=== PATIENT | male | born 1930 | race Caucasian/White ===

== ENCOUNTER 2018-02-22 19:44 | Observation (INO) | payer MEDICARE ==
[~2018-02-22] VITALS: Ht 177.8 cm; Wt 89.4 kg
[~2018-02-22 19:44] MED LIST: ACYC800 PO; ALBU90OI61 INH; ATEN50; Aspirin EC81 MG PO; BUDE6HFA; Baclofen10 MG PO; CEPH500 PO; CLIN300 PO; CLOB.05TC TOP; Coumadin PO; DIGO.25; DOCU100 PO; FURO20; FURO40 PO; HYDACE5325 PO; LISI20; Lisinopril2.5 MG PO; METF500 PO; MUPI2TO TOP; NEBI5 PO; Nitrostat0.4 MG SL; OXCA150 PO; OXYACE5T PO; POTCHL10ER PO; SENN187 PO; SERT100 PO; SIMV10 PO; TIOT18 INH; TORSE20 PO; VENLAFAXINE HC150 MG PO; WARF10; WARF7.5; WARF7.5 PO
[2018-02-22 20:28] LABS: BASOPHILS ABSOLUTE AUTO 0.04 K/mm3 (0.00-0.23); BASOPHILS PERCENT AUTO 1 % (0-2); EOSINOPHILS ABSOLUTE AUTO 0.63 K/mm3 (0.00-0.68); EOSINOPHILS PERCENT AUTO 9 % (0-6); Hematocrit 42.4 % (37.0-53.0); Hemoglobin 13.7 g/dL (13.5-17.5); IMMATURE GRAN ABSOLUTE AUTO 0.03 K/mm3 (0.00-0.10); IMMATURE GRAN PERCENT AUTO 0 % (0-1); LYMPHOCYTES ABSOLUTE AUTO 1.74 K/mm3 (0.84-5.20); LYMPHOCYTES PERCENT AUTO 24 % (21-46); MONOCYTES PERCENT AUTO 11 % (4-13); Mean Corpuscular HGB 31.6 pg (26.0-34.0); Mean Corpuscular HGB Conc 32.3 g/dL (31.5-36.5); Mean Corpuscular Volume 98 fL (80-100); Mean Platelet Volume 10.4 fL (9.1-12.4); NEUTROPHILS ABSOLUTE AUTO 4.12 K/mm3 (1.96-9.15); NEUTROPHILS PERCENT AUTO 56 % (41-73); Platelet Count 203 K/mm3 (150-400); RDW Coefficient Variation 13.2 % (11.7-14.2); RDW Standard Deviation 47.4 fL (35.1-46.3); Red Blood Cell Count 4.34 M/mm3 (4.30-5.90); White Blood Cell Count 7.36 K/mm3 (4.00-11.30)
[2018-02-22 20:44] LABS: Alanine Aminotransfer (ALT/SGP 32 U/L (12-78); Albumin, Blood 3.5 g/dL (3.4-5.0); Alk Phos 80 U/L (50-136); Anion Gap 7 mmol/L (6-16); Aspartate Aminotrans (AST/SGOT 29 U/L (12-37); Bilirubin, Total 0.3 mg/dL (0.1-1.0); Blood Urea Nitrogen 24 mg/dL (8-24); Bun/Creatinine Ratio 19.4 (12.0-20.0); CO2, Blood 24 mmol/L (21-32); Calcium, Blood 8.5 mg/dL (8.5-10.1); Chloride, Blood 109 mmol/L (98-108); Creatinine, Blood 1.24 mg/dL (0.60-1.20); Globulin, Blood 3.5 g/dL (2.2-4.0); Glomerular Filtration Rate 59 (60-); Glucose, Blood 118 mg/dL (70-99); Potassium, Blood 5.1 mmol/L (3.5-5.5); Sodium, Blood 140 mmol/L (136-145); Troponin I <0.015 ng/mL (0.000-0.040)
[2018-02-22 21:57] LABS: International Normalized Ratio 2.85; Prothrombin Time Results 30.6 Sec (9.7-11.5)
[2018-02-23] MEDS ORDERED: OXYC5 PO (01:05)
[2018-02-23 04:31] LABS: BASOPHILS ABSOLUTE AUTO 0.04 K/mm3 (0.00-0.23); BASOPHILS PERCENT AUTO 0 % (0-2); EOSINOPHILS ABSOLUTE AUTO 0.23 K/mm3 (0.00-0.68); EOSINOPHILS PERCENT AUTO 2 % (0-6); Hematocrit 42.3 % (37.0-53.0); Hemoglobin 13.6 g/dL (13.5-17.5); IMMATURE GRAN ABSOLUTE AUTO 0.05 K/mm3 (0.00-0.10); IMMATURE GRAN PERCENT AUTO 1 % (0-1); LYMPHOCYTES ABSOLUTE AUTO 0.81 K/mm3 (0.84-5.20); LYMPHOCYTES PERCENT AUTO 8 % (21-46); MONOCYTES ABSOLUTE AUTO 0.23 K/mm3 (0.16-1.47); MONOCYTES PERCENT AUTO 2 % (4-13); Mean Corpuscular HGB Conc 32.2 g/dL (31.5-36.5); Mean Corpuscular Volume 96 fL (80-100); NEUTROPHILS ABSOLUTE AUTO 8.43 K/mm3 (1.96-9.15); NEUTROPHILS PERCENT AUTO 86 % (41-73); Platelet Count 196 K/mm3 (150-400); RDW Coefficient Variation 13.2 % (11.7-14.2); RDW Standard Deviation 47.1 fL (35.1-46.3); Red Blood Cell Count 4.39 M/mm3 (4.30-5.90); White Blood Cell Count 9.79 K/mm3 (4.00-11.30)
[2018-02-23 04:54] LABS: Albumin, Blood 3.3 g/dL (3.4-5.0); Anion Gap 6 mmol/L (6-16); Blood Urea Nitrogen 23 mg/dL (8-24); Bun/Creatinine Ratio 20.9 (12.0-20.0); CO2, Blood 26 mmol/L (21-32); Calcium, Blood 8.5 mg/dL (8.5-10.1); Chloride, Blood 107 mmol/L (98-108); Glomerular Filtration Rate >60 (60-); Glucose, Blood 177 mg/dL (70-99); Phosphorus, Blood 2.3 mg/dL (2.5-4.9); Potassium, Blood 4.3 mmol/L (3.5-5.5); Sodium, Blood 139 mmol/L (136-145); Troponin I <0.015 ng/mL (0.000-0.040)
[2018-02-23] MEDS ORDERED: BUDE.25 INH (11:34)
[2018-02-23] MEDS ORDERED: PRED20 PO (11:35)
[2018-02-23] MEDS ORDERED: LEVO750 PO (11:35)
== END 2018-02-23 14:27 | disposition home or self-care (01) ==
LOC: ER 19:44 → MEDS 19:45 → ER 22:13 → MEDS 22:13 → ENPENDDIS 02-23 09:30 → MEDS 02-23 14:27
PROVIDERS: Emergency Medicine; Family Medicine
DX: R07.89 Other chest pain (principal); J44.1 Chronic obstructive pulmonary disease with (acute) exacerbation; I25.10 Atherosclerotic heart disease of native coronary artery without angina pectoris; N17.9 Acute kidney failure, unspecified; I10 Essential (primary) hypertension; E11.9 Type 2 diabetes mellitus without complications; E78.5 Hyperlipidemia, unspecified; I63.9 Cerebral infarction, unspecified; I48.2 Chronic atrial fibrillation; Z79.01 Long term (current) use of anticoagulants; Z91.013 Allergy to seafood; Z79.899 Other long term (current) drug therapy
CPT/HCPCS: 36415; 71046; 80053; 80069; 82947; 83880; 84484; 85025; 85610; 93005; 93010; 94640; 94760; 99285; G0378; J1956; J2920; J2930; J7030

== ENCOUNTER 2019-03-03 21:22 | Observation (INO) | payer MEDICARE ==
[~2019-03-03] VITALS: Ht 177.8 cm; Wt 93.0 kg
[~2019-03-03 21:22] MED LIST changes: +BUDE.25 INH; +LEVO750 PO; +OXYC5 PO; +PRED20 PO
[2019-03-03 23:46] LABS: BASOPHILS ABSOLUTE AUTO 0.03 K/mm3 (0.00-0.23); BASOPHILS PERCENT AUTO 0 % (0-2); EOSINOPHILS PERCENT AUTO 6 % (0-6); Hematocrit 42.4 % (37.0-53.0); Hemoglobin 13.5 g/dL (13.5-17.5); IMMATURE GRAN ABSOLUTE AUTO 0.05 K/mm3 (0.00-0.10); IMMATURE GRAN PERCENT AUTO 1 % (0-1); LYMPHOCYTES ABSOLUTE AUTO 1.81 K/mm3 (0.84-5.20); LYMPHOCYTES PERCENT AUTO 21 % (21-46); MONOCYTES ABSOLUTE AUTO 0.95 K/mm3 (0.16-1.47); MONOCYTES PERCENT AUTO 11 % (4-13); Mean Corpuscular HGB 31.9 pg (26.0-34.0); Mean Corpuscular HGB Conc 31.8 g/dL (31.5-36.5); Mean Corpuscular Volume 100 fL (80-100); Mean Platelet Volume 10.8 fL (9.1-12.4); NEUTROPHILS PERCENT AUTO 60 % (41-73); Platelet Count 176 K/mm3 (150-400); RDW Standard Deviation 48.7 fL (35.1-46.3); Red Blood Cell Count 4.23 M/mm3 (4.30-5.90); White Blood Cell Count 8.44 K/mm3 (4.00-11.30)
[2019-03-04 00:04] LABS: Alanine Aminotransfer (ALT/SGP 35 U/L (12-78); Albumin, Blood 3.7 g/dL (3.4-5.0); Albumin/Globulin Ratio 1.1 (0.8-1.8); Alk Phos 94 U/L (50-136); Anion Gap 6 mmol/L (6-16); Aspartate Aminotrans (AST/SGOT 28 U/L (12-37); Bilirubin, Total 0.4 mg/dL (0.1-1.0); Blood Urea Nitrogen 17 mg/dL (8-24); Bun/Creatinine Ratio 15.6 (12.0-20.0); CO2, Blood 30 mmol/L (21-32); Calcium, Blood 8.6 mg/dL (8.5-10.1); Chloride, Blood 105 mmol/L (98-108); Creatinine, Blood 1.09 mg/dL (0.60-1.20); Globulin, Blood 3.3 g/dL (2.2-4.0); Glomerular Filtration Rate >60 (60-); Glucose, Blood 121 mg/dL (70-99); Potassium, Blood 4.7 mmol/L (3.5-5.5); Sodium, Blood 141 mmol/L (136-145)
[2019-03-04 00:07] LABS: Prothrombin Time Results 37.8 Sec (9.7-11.5)
[2019-03-04 00:10] LABS: International Normalized Ratio 4.05
[2019-03-04] MEDS ORDERED: NEBI10 PO ×2 (01:11→02:24)
[2019-03-04] MEDS ORDERED: METF500C PO (01:11)
[2019-03-04] MEDS ORDERED: Percocet 5-3251 EACH PO (02:22)
[2019-03-04] MEDS ORDERED: WARF5 PO (02:23)
[2019-03-04] MEDS ORDERED: METF500 PO (02:23)
[2019-03-04] MEDS ORDERED: LO-DOSE ASPIRIN81 MG PO (02:24)
[2019-03-04] MEDS ORDERED: SIMV40 PO (02:24)
[2019-03-04 04:58] LABS: BASOPHILS ABSOLUTE AUTO 0.04 K/mm3 (0.00-0.23); BASOPHILS PERCENT AUTO 1 % (0-2); EOSINOPHILS ABSOLUTE AUTO 0.52 K/mm3 (0.00-0.68); EOSINOPHILS PERCENT AUTO 6 % (0-6); Hematocrit 40.7 % (37.0-53.0); Hemoglobin 13.1 g/dL (13.5-17.5); IMMATURE GRAN ABSOLUTE AUTO 0.04 K/mm3 (0.00-0.10); IMMATURE GRAN PERCENT AUTO 1 % (0-1); LYMPHOCYTES ABSOLUTE AUTO 2.02 K/mm3 (0.84-5.20); LYMPHOCYTES PERCENT AUTO 23 % (21-46); MONOCYTES ABSOLUTE AUTO 0.91 K/mm3 (0.16-1.47); MONOCYTES PERCENT AUTO 11 % (4-13); Mean Corpuscular HGB 31.6 pg (26.0-34.0); Mean Corpuscular HGB Conc 32.2 g/dL (31.5-36.5); Mean Corpuscular Volume 98 fL (80-100); Mean Platelet Volume 10.6 fL (9.1-12.4); NEUTROPHILS ABSOLUTE AUTO 5.13 K/mm3 (1.96-9.15); NEUTROPHILS PERCENT AUTO 59 % (41-73); Platelet Count 164 K/mm3 (150-400); RDW Coefficient Variation 13.1 % (11.7-14.2); RDW Standard Deviation 46.6 fL (35.1-46.3); Red Blood Cell Count 4.14 M/mm3 (4.30-5.90); White Blood Cell Count 8.66 K/mm3 (4.00-11.30)
--- NOTE | 2019-03-04 05:28 | NUR ---
GI CONSULT CALLED IN: CALLED [facility], REPORTS [facility] IS DR. BROWNING. CONSULT PLACED.
--- NOTE | 2019-03-04 05:32 | NUR ---
PALLATIVE CONSULT CALLED IN: LEFT MESSAGE FOR CONSULT REQUST TO PALLATIVE CARE DEPARTMENT
--- NOTE | 2019-03-04 06:00 | NUR ---
SHIFT SUMMARY: PT IS A 89YR OLD MALE, ARRIVED TO FLOOR VIA WC AT 0255. TRANSFERRED TO BED WITH 1 PERSON ASSIST. PT WAS UNSTEADY ON TRANSFER DUE TO DIZZINESS UPON STANDING. ADMITTING DX GI BLEED. MED HX: COPD, DM, AFIB. PATIENT STATES 2 BM WIHT MILD AMOUNT OF BLOOD WITH CLOTS PRIOR TO HOSPITAL ON WED 03/03/19. 1 STOOL IN ER WHICH HE DID NOT REPORT TO ER STAFF, STATES ONLY HAD A QUARTER SIZE BLOOD CLOT AND SMALL AMOUNT OF BLOOD. 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 IS ON COUMADIN, WAS JUST INCREASED TO 5MG, TOOK IN AM OF 03/03/19, STOOLS OCCURRED AFTER AM DOSE. DENIES ANY ABDOMINAL PAIN, DISCOMFORT OR TENDERNESS. NO N/V NOTED. DENIED CP OR PALPITATIONS. HR AFIB 80-90'S. INR 4.05, PT 37.8, VITAMIN K PO GIVEN IN ER. H&H WNL. APPETITE GOOD, LAST MEAL AROUND 1700 PRIOR TO COMING TO ER. ALLERGY TO SHELLFISH. CURRENTLY NPO. IV FLUIDS STARTED AT 0430, IV SITE 20G RIGHT WRIST, FLUSHED WELL WITH 10CC. 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 GI AND PALLATIVE CONSULT. DR. BROWNING IS GI STONE PLANER. CONSULT PLACED. LEFT MESSAGE FOR PALLATIVE CARE FOR CONSULT AROUND 0531. LUNGS DIMINISHED BUT CLEAR, SOB ON EXERTION, RA WNL. NO COUGH AT THIS TIME. STATES USES INHALERS AT HOME, NO O2. CALL LIGHT EXPLAINED AND IN PLACE, SIDE RAILS X 2 UP, BED ALARM ON. ENCOURAGE PATIENT TO CALL TO GET UP TO BATHROOM AND NOT TO FLUSH BM. NO OTHER CONCERNS TO REPORT AT THIS TIME.
[2019-03-04 12:41] LABS: International Normalized Ratio 2.29; Prothrombin Time Results 22.5 Sec (9.7-11.5)
[2019-03-04 15:38] LABS: Hematocrit 40.9 % (37.0-53.0)
--- NOTE | 2019-03-04 18:45 | NUR ---
PT. IS NO LONGER ON NPO. THE GI DOCTOR FELT HE DID NOT NEED A COLONOSCOPY AT THIS TIME. DR. CROCKETT WANTS TO KEEP HIM OVER NIGHT AND CHECK HIS LABS AGAIN IN THE MORNING. PT'S BYSTOLIC SENT TO PHARMACY TO BE RELABLED.
[2019-03-05 06:07] LABS: Hematocrit 43.1 % (37.0-53.0); Hemoglobin 13.6 g/dL (13.5-17.5)
[2019-03-05 06:20] LABS: International Normalized Ratio 1.33; Prothrombin Time Results 13.7 Sec (9.7-11.5)
--- NOTE | 2019-03-05 06:52 | NUR ---
03/05/19 0600 SLEPT WELL LAST NIGHT. VITALS REMAIN STABLE. UNEVENTFUL NIGHT.
[2019-03-05] MEDS ORDERED: ALBU90OI6 INH (13:35)
[2019-03-05] MEDS ORDERED: BUDE10.22 INH (13:36)
--- NOTE | 2019-03-05 15:24 | NUR ---
PATIENT D/C'D HOME WITH DAUGHTER AT THIS TIME. PATIENT STATES UNDERSTANDING OF MEDS, F/U APPT, NEED FOR GI REFERRAL, ETC. PATIENT STATES 1 STOOL EARLY THIS AM, BROWN IN COLOR. NO C/O AT THIS TIME. RX FAXED TO [facility].
== END 2019-03-05 15:30 | disposition home or self-care (01) ==
LOC: ER 21:22 → MEDS 21:23 → ENPENDDIS 03-05 15:02 → MEDS 03-05 15:30
PROVIDERS: Emergency Medicine; Internal Medicine; ADMIT Hospitalist
DX: K92.2 Gastrointestinal hemorrhage, unspecified (principal); I48.2 Chronic atrial fibrillation; R79.1 Abnormal coagulation profile; I10 Essential (primary) hypertension; E11.9 Type 2 diabetes mellitus without complications; J44.9 Chronic obstructive pulmonary disease, unspecified; Z80.0 Family history of malignant neoplasm of digestive organs; Z86.73 Personal history of transient ischemic attack (TIA), and cerebral infarction without residual deficits; Z91.013 Allergy to seafood; Z79.899 Other long term (current) drug therapy; Z79.82 Long term (current) use of aspirin; Z79.84 Long term (current) use of oral hypoglycemic drugs; Z79.01 Long term (current) use of anticoagulants; Z87.891 Personal history of nicotine dependence
CPT/HCPCS: 36415; 80053; 82947; 85014; 85018; 85025; 85610; 85730; 86850; 86900; 86901; 93005; 93010; 94640; 94760; 96360; 96361; 99285-25; G0378; J1815; J7030